=== PATIENT | male | born 1975 | race Caucasian/White ===

== ENCOUNTER → 2018-12-11 09:33 | Outpatient (CLI) | payer SELFPAY ==
[2018-08-11 09:44] VITALS: BMI 36.3
--- NOTE | 2018-12-11 09:44 | MRI_ITS ---
STUDY: MRI LEFT ANKLE WITHOUT CONTRAST REASON FOR EXAM: Male, 43 years old. Achilles injury 4 days ago TECHNIQUE: Standardized fat and water weighted pulse sequences were obtained in all 3 orthogonal planes. COMPARISON: None. FINDINGS: There is diffuse subcutaneous edema particularly along the medial and posterior ankle. Normal posterior tibialis tendon. Normal flexor digitorum longus tendon. Normal flexor hallucis longus tendon. Normal peroneus longus and brevis tendons. Normal tibialis anterior tendon. Normal extensor hallucis longus tendon. Normal extensor digitorum longus tendons. There is high-grade tear of the Achilles musculotendinous junction without retraction. There is mild edema in the distal muscle and surrounding soft tissues. The Achilles teno-osseous insertion is intact. Normal plantar fascia. Normal plantar calcaneal tubercles. Normal intrinsic muscles of the rearfoot. Normal distal tibiofibular syndesmotic ligamentous complex. Normal lateral ligamentous complex. Normal subtalar ligaments and sinus tarsi. Normal deltoid ligamentous complexes. Normal plantar calcaneonavicular (spring) ligament. Normal tibiotalar articulation. Normal talar dome. Normal subtalar articulations. Normal talonavicular articulation. Normal calcaneocuboid articulation. Normal navicular-cuneiform articulations. MRI/Lower Ext Joint Only (Routine) IMPRESSION: High-grade tear of the Achilles musculotendinous junction without retraction, the posterior fibers appear intact. There is mild edema in the distal muscle and surrounding soft tissues. The Achilles teno-osseous insertion is intact. Diffuse heterogeneous edema most prominent along the medial and posterior ankle. Electronically Signed: Chuy Jon, at 14:19 EDT Tel , Service support ,
== END ==
PROVIDERS: Referring Provider Physician Assistant; Visit Provider Physician Assistant
DX: S86.092A Other specified injury of left Achilles tendon, initial encounter (principal); X58.XXXA Exposure to other specified factors, initial encounter; Y93.9 Activity, unspecified; Y92.9 Unspecified place or not applicable; Y99.9 Unspecified external cause status
CPT/HCPCS: 73721